=== PATIENT | female | born 1990 | race Caucasian/White ===

== ENCOUNTER 2017-03-07 14:00 | Emergency (ER) | payer OTHER ==
[~2017-03-07] VITALS: Ht 172.7 cm; Wt 92.0 kg
[2017-03-07 14:03] VITALS: Ht 172.7 cm; Wt 92.0 kg
[2017-03-07] MEDS ORDERED: ONDANSETRON (ODT) 4 MG TAB ODT STA (14:56)
[2017-03-07] MEDS ORDERED: OXYMETAZOLINE 0.05% 15 ML NAS SPRAY NASAL ONE (15:00)
--- NOTE | 2017-03-07 16:35 | RADRPT ---
PROCEDURE: CT Maxillofacial without Contrast CLINICAL INDICATION: Facial trauma with epistaxis TECHNIQUE: Transaxial images were obtained through the maxillofacial region on a multi-slice scann er without the intravenous contrast administration. Sagittal and coronal re-formations were subseque ntly reconstructed. One or more of the following dose reduction techniques were used: - Automated exposure control. - Adjustment of the mA and/or kV according to patient size. - Use of iterative reconstruction technique. Radiation dose: CTDIvol = 29.46 mGy; DLP = 549.62 mGy-cm. COMPARISON: No prior studies are available for comparison. FINDINGS: Osseous structures: Appear intact with no fracture or destructive process evident. Paranasal sinuses: There is partial opacification of the left maxillary sinus with an air-fluid leve l and with a 7 mm in diameter polyp for a mucous retention cysts seen within the inferior lateral an terior left maxillary sinus. Mild mucoperiosteal thickening is seen in the right maxillary sinus, wi th thin anterior ethmoid air cells bilaterally, and within the left lateral sphenoid sinus. The fron pablo sinuses are well-aerated. Mastoid air cells: Appear well pneumatized. Temporomandibular joints: Appear unremarkable. Orbits: The ocular globes, optic nerves, and intraorbital contents appear unremarkable. Soft tissues: Appear unremarkable except for a 2.6 mm calcification seen medial to the left submandi bular gland suspicious for a sialolith within the left submandibular duct. The submandibular glands appear unremarkable. IMPRESSION: 1. No fracture is identified. 2. An air-fluid level seen in the left maxillary sinus and with mild inflammatory changes seen in t he left lateral sphenoid sinus, the right maxillary sinus and the anterior ethmoid air cells bilater ally, while the frontal sinuses are well-aerated. 3. The intraorbital contents appear unremarkable. 4. 2.6 mm calcification suspicious for a sialolith within the left submandibular duct. The submandib ular glands appear unremarkable. Physician Saad Date Time Electronically viewed and signed by Physician Saad on 03/07/2017 16:35 RH/
[2017-03-07] MEDS ORDERED: ONDA4TAB14 PO (16:51)
[2017-03-07] MEDS ORDERED: OXYM15SP34 NASAL (16:51)
--- NOTE | 2017-03-07 16:54 | ERD ---
ER Documentation Chief Complaint Chief Complaint Complains of nose bleed since today HPI error ROS All systems reviewed and are negative except as per history of present illness. Medications Home Meds Active Scripts Ondansetron (Ondansetron Odt) 4 Mg Tab.rapdis, 4 MG PO Q6H Y for NAUSEA AND/OR VOMITING, #10 TAB Prov:IVANNA WELDON PA-C 03/07/17 Oxymetazoline Hcl* (Afrin [place]*) 0.05% - 15 Ml [place], 2 SPRAYS NASAL BID, #1 EA to each nostril Prov:IVANNA WELDON PA-C 03/07/17 Allergies Allergies: Coded Allergies: No Known Allergy (Unverified , 03/07/17) Physical Exam Vitals Vital Signs Date Time Temp Pulse Resp B/P Pulse Ox O2 Delivery O2 Flow Rate FiO2 03/07/17 17:25 98.4 71 18 124/74 98 03/07/17 14:03 98.0 68 20 98 Physical Exam Const: [] Head: Atraumatic Eyes: Normal Conjunctiva ENT: Normal External Ears, Nose and Mouth. Neck: Full range of motion..~ No meningismus. Resp: Clear to auscultation bilaterally Cardio: Regular rate and rhythm, no murmurs Abd: Soft, non tender, non distended. Normal bowel sounds Skin: No petechiae or rashes Back: No midline or flank tenderness Ext: No cyanosis, or edema Neur: Awake and alert Psych: Normal Mood and Affect Results 24 hrs Current Medications Medications (Trade) Dose Ordered Sig/Kecia Route PRN Reason Start Time Stop Time Status Last Admin Dose Admin Oxymetazoline HCl (Afrin [place]) 2 spray ONCE ONCE NASAL 03/07/17 15:00 03/07/17 15:01 DC Ondansetron HCl (Zofran Odt) 4 mg ONCE STAT ODT 03/07/17 14:56 03/07/17 14:57 DC 03/07/17 15:45 STACI VELÁZQUEZ Mar 07, 2017 16:54
[2017-03-07 17:25] VITALS: BP 124/74; PULSE 71; RESP 18; TEMP 98.4
--- NOTE | 2017-03-09 12:16 | ERD ---
ER Documentation Chief Complaint Chief Complaint Complains of nose bleed since today HPI Patient is a 26-year-old female presenting to the emergency department with complaints of epistaxis today for 1 hour. Symptoms are constant. She states she did hit the bridge of her nose against her bed approximately 1 week ago and bleeding occurred initially, but then resolved. She then awoke this morning again with bleeding from the nose which is hard to stop. She denies significant nasal pain, fevers, chills, or other symptoms. She did not lose consciousness after the accident occurred. Symptoms have been constant today. ROS All systems reviewed and are negative except as per history of present illness. Medications Home Meds Active Scripts Ondansetron (Ondansetron Odt) 4 Mg Tab.rapdis, 4 MG PO Q6H Y for NAUSEA AND/OR VOMITING, #10 TAB Prov:IVANNA WELDON PA-C 03/07/17 Oxymetazoline Hcl* (Afrin [place]*) 0.05% - 15 Ml [place], 2 SPRAYS NASAL BID, #1 EA to each nostril Prov:IVANNA WELDON PA-C 03/07/17 Allergies Allergies: Coded Allergies: No Known Allergy (Unverified , 03/07/17) PMhx/Soc Medical and Surgical Hx: pt denies Medical Hx, pt denies Surgical Hx Hx Alcohol Use: No Hx Substance Use: No Hx Tobacco Use: No Physical Exam Vitals Vital Signs Date Time Temp Pulse Resp B/P Pulse Ox O2 Delivery O2 Flow Rate FiO2 03/07/17 17:25 98.4 71 18 124/74 98 03/07/17 14:03 98.0 68 20 98 Physical Exam Const: Nontoxic, well-appearing female in no acute distress. Head: Atraumatic Eyes: Normal Conjunctiva ENT: Normal External Ears, Nose and Mouth. There is active bleeding from bilateral nares. Examination of the left nares shows anterior to mid nares epistaxis. Examination of the right nares shows anterior blood present but no posterior blood noted. Initially the patient did have some blood in the posterior pharynx, however after gargling and spitting and reevaluation, the patient showed no posterior bleeding. There is mild tenderness palpation of the bridge of the nose but no deformity and no crepitus noted. Resp: Clear to auscultation bilaterally Cardio: Regular rate and rhythm, no murmurs Skin: No petechiae or rashes Ext: No cyanosis, or edema Neur: Awake and alert Psych: Normal Mood and Affect Results 24 hrs Current Medications Medications (Trade) Dose Ordered Sig/Kecia Route PRN Reason Start Time Stop Time Status Last Admin Dose Admin Oxymetazoline HCl (Afrin [place]) 2 spray ONCE ONCE NASAL 03/07/17 15:00 03/07/17 15:01 DC Ondansetron HCl (Zofran Odt) 4 mg ONCE STAT ODT 03/07/17 14:56 03/07/17 14:57 DC 03/07/17 15:45 Procedures/MDM 26-year-old female presents to the emergency department with complaints of epistaxis. The patient did have nasal trauma approximately 1 week ago and bleeding occurred initially, but then resolved. She then awoke again today with bleeding. On physical examination there is some active bleeding of bilateral nares but both appear to be mid to anterior bleeds. I enlisted the help of the attending physician, Dr. Leti Adhikari, who also evaluated the patient bedside she recommended Afrin spray and nasal packing with Rhino Rocket if indicated. She also recommended CT maxillofacial bones without contrast. This was ordered. Afrin was applied in the department and hemostasis was achieved. Upon reinspection of the nares there is no more bleeding and there was no blood to the posterior pharynx. She did not require packing. Offered pain medication to the patient, but she declined. She was given Zofran for nausea. Facial bone CT showed no evidence of fracture. The patient's symptoms stabilized within the department and she was stable for outpatient management with a prescription for Zofran and Afrin. Attending physician, Dr. Leti Adhikari agreed with the ED course and the patient was stable for discharge. She was advised to return immediately for any new or worsening symptoms. She is to have close follow-up with her primary care physician within 1-2 days. PROCEDURE: CT Maxillofacial without Contrast CLINICAL INDICATION: Facial trauma with epistaxis TECHNIQUE: Transaxial images were obtained through the maxillofacial region on a multi-slice scanner without the intravenous contrast administration. Sagittal and coronal re-formations were subsequently reconstructed. One or more of the following dose reduction techniques were used: - Automated exposure control. - Adjustment of the mA and/or kV according to patient size. - Use of iterative reconstruction technique. Radiation dose: CTDIvol = 29.46 mGy; DLP = 549.62 mGy-cm. COMPARISON: No prior studies are available for comparison. FINDINGS: Osseous structures: Appear intact with no fracture or destructive process evident. Paranasal sinuses: There is partial opacification of the left maxillary sinus with an air-fluid level and with a 7 mm in diameter polyp for a mucous retention cysts seen within the inferior lateral anterior left maxillary sinus. Mild mucoperiosteal thickening is seen in the right maxillary sinus, with thin anterior ethmoid air cells bilaterally, and within the left lateral sphenoid sinus. The frontal sinuses are well-aerated. Mastoid air cells: Appear well pneumatized. Temporomandibular joints: Appear unremarkable. Orbits: The ocular globes, optic nerves, and intraorbital contents appear unremarkable. Soft tissues: Appear unremarkable except for a 2.6 mm calcification seen medial to the left submandibular gland suspicious for a sialolith within the left submandibular duct. The submandibular glands appear unremarkable. IMPRESSION: 1. No fracture is identified. 2. An air-fluid level seen in the left maxillary sinus and with mild inflammatory changes seen in the left lateral sphenoid sinus, the right maxillary sinus and the anterior ethmoid air cells bilaterally, while the frontal sinuses are well-aerated. 3. The intraorbital contents appear unremarkable. 4. 2.6 mm calcification suspicious for a sialolith within the left submandibular duct. The submandibular glands appear unremarkable. Physician Saad Date Time Electronically viewed and signed by Physician Saad on 03/07/2017 16:35 Departure Diagnosis: Primary Impression: Epistaxis Condition: Fair Patient Instructions: Epistaxis (Adult) [facility] Usted se dodge hecho un examen mdico de control que le indica que no est en conchis condicin que requiera tratamiento urgente en el Departamento de Emergencia. Un estudio ms profundo y el tratamiento de griffin condicin pueden esperar sin ningn riesgo hasta que usted sea atendida/o en el consultorio de griffin mdico o conchis cl merrill. Es responsabilidad suya arreglar conchis caprice para el seguimiento del james. MANEJO DE CONDICIONES NO URGENTES EN EL FUTURO 1) Si usted tiene un mdico de atencin primaria: Usted debera llamar a griffin mdico de atencin primaria antes de venir al departamento de emergencia. Despus de las horas de consultorio, griffin doctor o griffin asociado/a est disponible por telfono. El mdico o enfermero de ysabel en el servicio telefnico puede asesorarle por landen medio para atender el problema, o james contrario se puede programar conchis caprice. 2) Si usted no tiene un mdico de atencin primaria: Llame al mdico o clnica de referencia que aparece abajo ryder las horas de consultorio para hacer conchis caprice para que le vean. CLINICAS: [facility] [phone] [facility] [phone] [facility]. [facility] [phone] [facility]. [facility] [phone] [facility]. [place] [id number] [phone] [facility]. [phone] [address] Additional Instructions: No mas mejor en 2-3 roach, regresar. Mas peor en 24 horas, regresear rapidamente. Ir a doctor primario in 5-7 roach. Usar instrucciones cuando sahara medicamento. IVANNA WELDON PA-C Mar 09, 2017 12:16
== END 2017-03-07 17:25 | disposition home or self-care (01) ==
LOC: FTE 14:00
DX: R04.0 Epistaxis (principal)
CPT/HCPCS: 70486